=== PATIENT | female | born 1980 | race Asian ===

== ENCOUNTER 2022-12-12 16:54 | Emergency (ER) | payer OTHER ==
[2022-12-12 17:03] VITALS: BP 115/68; PULSE 99; RESP 20; TEMP 98.4; BMI 21.4
== END 2022-12-12 18:13 | disposition home or self-care (01) ==
LOC: JERFT 16:54
DX: L03.312 Cellulitis of back [any part except buttock and flank] (principal); L08.9 Local infection of the skin and subcutaneous tissue, unspecified
CPT/HCPCS: 99284-25

== ENCOUNTER 2023-07-24 18:19 | Emergency (ER) | payer OTHER ==
[2023-07-24 18:36] VITALS: RESP 18; TEMP 97.7; BMI 22.2
[2023-07-24] MEDS ORDERED: ACETAMINOPHEN 500 MG TABLET (FP) ONE (20:02)
[2023-07-24] MEDS: ACETAMINOPHEN 500 MG TABLET (FP) PO ONE (20:12)
[2023-07-24 20:30] LABS: EOS % 5.5 % (0-4.5); HEMATOCRIT 32.4 % (32.4-45.2); HEMOGLOBIN 10.8 GM/dL (10.7-15.3); LYMPH % 28.8 % (8-40); MCH 29.7 pg (25.7-33.7); MCHC 33.4 g/dl (32.0-36.0); MEAN CELL VOLUME 88.9 fl (80-96); MEAN PLT VOLUME 11.5 fl (7.5-11.1); MONO % 5.9 % (3.8-10.2); NEUT % 58.8 % (42.8-82.8); PLATELET COUNT 206 10^3/uL (134-434); RBC 3.65 M/mm3 (3.60-5.2); RDW 13.2 % (11.6-15.6); WHITE BLOOD COUNT 9.8 K/mm3 (4.0-10.0)
[2023-07-24 20:34] LABS: EPI CELLS 17 /uL (0-25.1); HCG,QUALITATIVE URINE Negative; HYALINE CASTS 0 /uL (0-3.1); PH,URINE 7.5 (5.0-8.0); URINE APPEARANCE CLEAR; URINE BACTERIA 1030 /uL (0-1359); URINE BILIRUBIN NEGATIVE (NEGATIVE); URINE COLOR YELLOW; URINE GLUCOSE (UA) NEGATIVE (NEGATIVE); URINE KETONE NEGATIVE (NEGATIVE); URINE LEUK ESTERASE 1+ (NEGATIVE); URINE NITRITE NEGATIVE (NEGATIVE); URINE PROTEIN TRACE (NEGATIVE); URINE RBC 69 /uL (0-23.9); URINE UROBILINOGEN 0.2 mg/dL (0.2-1.0); URINE WBC 11 /uL (0-25.8)
[2023-07-24 20:39] LABS: INR 1.13 (0.83-1.09); PROTHROMBIN TIME (PATIENT) 12.7 SEC (9.7-13.0)
[2023-07-24 20:41] LABS: ACTIVATED PTT 36.9 SECONDS (25.2-36.5)
[2023-07-24 20:48] LABS: POTASSIUM 4.2 mmol/L (3.5-5.1)
[2023-07-24 20:49] LABS: CALCIUM 9.4 mg/dL (8.5-10.1)
[2023-07-24 20:50] LABS: ALBUMIN 3.9 g/dl (3.4-5.0); BLOOD UREA NITROGEN 5.2 mg/dL (7-18)
[2023-07-24 20:53] LABS: CREATININE 0.6 mg/dL (0.55-1.3)
[2023-07-24 20:55] LABS: BILIRUBIN,TOTAL 0.2 mg/dL (0.2-1); TOT PROT 7.2 g/dl (6.4-8.2)
[2023-07-24] MEDS ORDERED: NITROFURANTOIN MACROCRYSTAL 50 MG CAPSULE (FP) ONE (21:29)
[2023-07-24] MEDS: NITROFURANTOIN MONOHYD/M-CRYST 100 MG CAPSULE PO ONE (21:33)
[2023-07-24 21:45] VITALS: BP 117/81; PULSE 71
== END 2023-07-24 21:42 | disposition home or self-care (01) ==
LOC: JER 18:19
DX: N30.00 Acute cystitis without hematuria (principal); N92.1 Excessive and frequent menstruation with irregular cycle; R10.9 Unspecified abdominal pain
CPT/HCPCS: 36415; 80053; 81003; 84703; 85025; 85610; 85730; 86850; 86900; 86901; 87086; 87186; 99283-25